=== PATIENT | female | born 1975 | race Caucasian/White ===

== ENCOUNTER → 2017-09-29 | Outpatient (CLI) | payer OTHER ==
[2016-05-19 10:41] VITALS: BMI 24.6
[~2017-09-29] MED LIST: ACE3 PO; ACET-1718 PO; ACET-1966 PO; ASPI-1471 PO; DOCO200C PO; DOXY150T6 PO; FAMO20TA28 PO; IBU800 PO; IBUP800T37 PO; Ibuprofen PO; LOR5 PO; MET2 PO; MULT-1335 PO; Methylergonovine Maleate PO; NORG1TAB76 PO; OMEP10CA38 PO; ONDA8TAB94 PO; OXYC-373 PO; PER PO; RANI25VI5 IJ; VITA-175 PO
--- NOTE | 2017-10-04 09:31 | RADIOLOGY IMAGING REPORT ---
FACILITY: [facility] - [place] PATIENT NAME: FAVIAN LINDSEY : [id number] MR: [id number] V: [id number] EXAM DATE: ORDERING PHYSICIAN: PRETTY DYER TECHNOLOGIST: Reyna Thornton PROCEDURE:BILATERAL DIGITAL SCREENING MAMMOGRAM WITH CAD AND 3D BREAST TOMOSYNTHESIS. COMPARISON:No priors. Baseline study. INDICATIONS:SCREENING FINDINGS: The breasts have scattered fibroglandular parenchymal densities. There is an asymmetry in the 4 o'clock area of the left breast warranting additional evaluation. Right breast is mammographically negative. DIAGNOSTIC CATEGORY 0--INCOMPLETE: NEED ADDITIONAL IMAGING EVALUATION. RECOMMENDATIONS: ADDITIONAL MAMMOGRAPHIC VIEWS REQUIRED: LEFT BREAST. ULTRASOUND: LEFT BREAST. IMPRESSION: Bi-RADS 0: Incomplete. Needs additional evaluation. RECOMMENDATION: 1. Left breast diagnostic mammogram. Spot compression, CC and MLO views with tomosynthesis are recommended, as well as a true MLO view. 2. Ultrasound of the left breast if indicated by additional views. Dictated by: Juan Santiago on 10/02/2017 at 9:32 Transcribed by: CLAY on 10/02/2017 at 22:43 Approved by: Laverne Staley M.D. on 10/04/2017 at 8:51 [facility]
== END ==
LOC: MAMO 04:32
PROVIDERS: ATTEND Obstetrics & Gynecology
DX: Z12.31 Encounter for screening mammogram for malignant neoplasm of breast (principal); R92.8 Other abnormal and inconclusive findings on diagnostic imaging of breast
CPT/HCPCS: 77063; 77067

== ENCOUNTER → 2017-10-17 | Outpatient (CLI) | payer OTHER ==
[2016-05-19 10:41] VITALS: BMI 24.6
--- NOTE | 2017-10-18 12:24 | RADIOLOGY IMAGING REPORT ---
F[place] [facility] [place]IENT NAME: FAVIAN LINDSEY : [id number] MR: [id number] V: [id number] EXAM DATE: [id number] ORDERING PHYSICIAN: PRETTY DYER TECHNOLOGIST: Gayle Malik PROCEDURE:LEFT DIGITAL DIAGNOSTIC MAMMOGRAM WITH CAD AND 3D BREAST TOMOSYNTHESIS. COMPARISON:Prior mammograms dated 09/29/17. INDICATIONS:FURTHER EVALUATION FINDINGS: The patient returns for spot compression views in the left CC and MLO projection and a medial lateral view of the left breast. There is a focal area of increased density in the 4 o'clock position of the left breast on the previous mammograms appear partially compressible. The medial and lateral view of the left breast, this area appeared much less prominent. Today's left breast ultrasound demonstrated a very subtle 4.9 x 2.5 x 5.4 mm ovoid hypoechoic nodule in the 4 o'clock position of the left breast. This could account for the mammographic findings although not likely. Given the improved appearance on the medial lateral view of the left breast, and no prior mammograms earlier than September 29, 2017 available for comparison, a three month followup left mammogram is recommended unless clinical findings warrant more immediate attention. DIAGNOSTIC CATEGORY 3--PROBABLY BENIGN FINDING. RECOMMENDATIONS: THREE MONTH FOLLOW-UP DIAGNOSTIC MAMMOGRAM: LEFT BREAST. IMPRESSION: Bi-RADS 3: A three month followup left mammogram is recommended as described above. Images were reviewed with R2CAD and 3D breast tomosynthesis. Dictated by: Laverne Staley M.D. on 10/17/2017 at 16:32 Transcribed by: CLAY on 10/17/2017 at 20:35 Approved by: Laverne Staley M.D. on 10/18/2017 at 12:22 [facility]
--- NOTE | 2017-10-31 09:43 | RADIOLOGY IMAGING REPORT ---
FACILITY: [facility] - [place] PATIENT NAME: FAVIAN LINDSEY : [id number] MR: [id number] V: [id number] EXAM DATE: [id number] ORDERING PHYSICIAN: PRETTY DYER TECHNOLOGIST: Livier Ash PROCEDURE:LEFT BREAST ULREASOUND COMPARISON:None. INDICATIONS:FURTHER EVALUATION FINDINGS: In the 4 o'clock position of the left breast there is a well circumscribed ovoid hypoechoic nodule measuring 4.9 x 2.5 x 5.4 mm. The nodule is wider than tall with no acoustic shadowing. This could account for today's mammographic findings although not likely. Incidentally noted is a mildly prominent duct in the 2 o'clock position of the left breast measuring 1.7 mm in diameter. A three month followup left mammogram is recommended as discussed on today's left mammogram report. DIAGNOSTIC CATEGORY 3--PROBABLY BENIGN FINDING. RECOMMENDATIONS: THREE MONTH FOLLOW-UP DIAGNOSTIC MAMMOGRAM: LEFT BREAST. IMPRESSION: Bi-RADS 3: A three month followup left mammogram is recommended as described on today's left mammogram report. Dictated by: Laverne Staley M.D. on 10/17/2017 at 16:34 Transcribed by: CLAY on 10/18/2017 at 15:51 Approved by: Laverne Staley M.D. on 10/31/2017 at 9:42 [facility]
== END ==
LOC: MAMO 01:55
PROVIDERS: ATTEND Obstetrics & Gynecology
DX: N63.23 Unspecified lump in the left breast, lower outer quadrant (principal)
CPT/HCPCS: 77065

== ENCOUNTER → 2018-01-05 | Outpatient (CLI) | payer OTHER ==
[2016-05-19 10:41] VITALS: BMI 24.6
--- NOTE | 2018-01-08 09:55 | RADIOLOGY IMAGING REPORT ---
FACILITY: [facility] - [place] PATIENT NAME: FAVIAN LINDSEY : [id number] MR: [id number] V: [id number] EXAM DATE: [id number] ORDERING PHYSICIAN: PRETTY DYER TECHNOLOGIST: Gayle Malik PROCEDURE:LEFT DIGITAL DIAGNOSTIC MAMMOGRAM WITH CAD ASSISTED INTERPRETATION & 3D TOMOSYNTHESIS COMPARISON:Prior mammograms 10/17/17, 09/29/17 INDICATIONS:FURTHER EVALUATION FINDINGS: Moderately heterogeneous fibroglandular tissue is seen throughout the breasts. The patient received a full field Left CC and MLO views in addition to a mediolateral view of the Left breast and Spot compression views of Left CC and MLO projections. The focal asymmetry in the lateral portion Left breast on the Left CC view appears partially compressible slightly less prominent on the Tomographic series of the Spot compression views. The focal area of increased density inferior portion of Left breast on the Left MLO view appears compressible. A 6 month follow-up Left mammogram is recommended for further evaluation unless clinical findings warrant more immediate attention. DIAGNOSTIC CATEGORY 3--PROBABLY BENIGN FINDING. RECOMMENDATIONS: SIX MONTH FOLLOW-UP DIAGNOSTIC MAMMOGRAM: LEFT BREAST. IMPRESSION: BIRADS 3: Probably benign finding A 6 month follow-up Left diagnostic mammogram is recommended as described. Dictated by: Laverne Staley M.D. on 01/05/2018 at 15:01 Transcribed by: ISRAEL on 01/05/2018 at 15:17 Approved by: Laverne Staley M.D. on 01/08/2018 at 9:54 [facility]
--- NOTE | 2018-01-08 09:56 | RADIOLOGY IMAGING REPORT ---
[facility] PATIENT NAME: FAVIAN LINDSEY : [id number] MR: [id number] V: [id number] EXAM DATE: [id number] ORDERING PHYSICIAN: PRETTY DYER TECHNOLOGIST: Paulo Amin PROCEDURE:US LEFT BREAST COMPARISON:Prior Left breast Ultrasound 10/17/17 and Today's mammogram. INDICATIONS:3 MO F/U FINDINGS: By the previously noted well circumscribed ovoid hypoechoic nodule in the 4 o'clock position of the Left breast is not seen on the current examination. A minimally prominent duct previously noted in the 2 o'clock position appears less prominent. No other sonographic abnormality is identified. As discussed on Today's Left diagnostic mammogram a 6 month follow-up Left mammogram is recommended unless clinical findings warrant more immediate attention. DIAGNOSTIC CATEGORY 3--PROBABLY BENIGN FINDING. RECOMMENDATIONS: SIX MONTH FOLLOW-UP DIAGNOSTIC MAMMOGRAM: LEFT BREAST. IMPRESSION: BIRADS 3: Probably benign finding A 6 month follow-up diagnostic Left mammogram is recommended as discussed on Today's Left mammogram report. Left breast Ultrasound is unremarkable. Dictated by: Laverne Staley M.D. on 01/05/2018 at 14:52 Transcribed by: ISRAEL on 01/05/2018 at 15:26 Approved by: Laverne Staley M.D. on 01/08/2018 at 9:54 [facility]
== END ==
LOC: MAMO 03:38
PROVIDERS: ATTEND Obstetrics & Gynecology
DX: R92.2 Inconclusive mammogram (principal)
CPT/HCPCS: 77061; 77065

== ENCOUNTER 2019-01-05 09:05 | Emergency (ER) | payer OTHER ==
[2016-05-19 10:41] VITALS: Wt 71.2 kg
--- NOTE | 2019-01-05 09:13 | ER Report ---
History and Physical Time Seen By MD: 09:13 HPI/ROS CHIEF COMPLAINT: Chest pain HISTORY OF PRESENT ILLNESS: Patient is a 43-year-old female who started with chest pain spontaneously woke her up around 4 this morning. She reports it is substernal without radiation. She does report shortness of breath and pain with deep inspiration. She denies nausea or vomiting. She states that last evening she was having some symptoms that she felt like she might have a urinary tract infection however those symptoms are now improved. She is a former smoker quit 15 years ago. She is no prior cardiac history. She denies history of blood clots or DVT. Patient states that she took a couple of 81 mg aspirin drawn 8:30 this morning just prior to coming into the emergency department. Because the pain persisted she came in for evaluation. REVIEW OF SYSTEMS: Constitutional: No fever, no chills. Eyes: No discharge. ENT: No sore throat. Cardiovascular: Chest pain Respiratory: Shortness of breath Gastrointestinal: No abdominal pain, no vomiting. Genitourinary: No hematuria. Musculoskeletal: No back pain. Skin: No rashes. Neurological: No headache. Allergies: Coded Allergies: Sulfa (Sulfonamide Antibiotics) (Verified Allergy, Severe, SWELLING, 01/04/11) misoprostol (Verified Allergy, Severe, AIRWAY OBSTRUCTION, 08/07/13) hydrocodone (Unverified Allergy, Intermediate, RASH, 03/11/14) Home Meds Active Scripts Naproxen (NAPROXEN) 375 Mg Tablet, 375 MG PO TID for 10 Days, #30 TAB 0 Refills Prov:RACHANA BARRAGAN MD 01/05/19 Ibuprofen (IBUPROFEN) 800 Mg Tablet, 1 TAB PO Q8H, #30 TAB Take with food every 8 hours. Prov:PRETTY DYER MD 05/18/16 Reported Medications Multivitamin With Minerals (MULTIPLE VITAMIN) 1 Each Tablet, 1 EACH PO QDAY, TAB 05/17/16 Discontinued Reported Medications Acetaminophen (TYLENOL) 325 Mg Tablet, 325 MG PO PRN for PAIN 06/01/15 Vitamin B Complex (B COMPLEX) 1 Each Tablet, 1 EACH PO 04/23/15 Discontinued Scripts Oxycodone Hcl/Acetaminophen (OXYCODONE-ACETAMINOPHEN 5-325) 1 Each Tablet, 1-2 EACH PO Q4H PRN for PAIN, #30 TAB TAKE 1-2 TABLET NEEDED FOR PAIN - NO CLOSER THAN EVERY 4 HOURS. Prov:PRETTY DYER MD 05/18/16 Past Medical/Surgical History Past medical history for severe preeclampsia, status post vaginal hysterectomy 2 016. Hx Smoking: Yes (QUIT SMOKING 12 YEARS AGO) Smoking Status: Former Smoker Exposure to Second Hand Smoke?: No Hx Alcohol Use: No Constitutional Vital Sign - Last 24 Hours 01/05/19 01/05/19 01/05/19 01/05/19 09:05 09:09 09:10 09:19 Temp 98.6 Pulse ??? 93 Resp 18 B/P (MAP) 111/73 (86) 111/73 Pulse Ox 89 O2 Delivery Room Air O2 Flow Rate 1.0 01/05/19 01/05/19 01/05/19 01/05/19 09:20 09:35 09:50 10:00 Pulse ? B/P (MAP) 102/66 (78) 01/05/19 01/05/19 01/05/19 01/05/19 10:05 10:20 10:30 10:35 Pulse 60 59 59 Resp 6 15 8 B/P (MAP) 99/71 (80) Pulse Ox 93 93 97 01/05/19 01/05/19 01/05/19 01/05/19 10:50 11:00 11:05 11:20 Pulse 68 64 76 Resp 23 17 12 B/P (MAP) 119/71 (87) Pulse Ox 96 97 84 01/05/19 01/05/19 01/05/19 01/05/19 11:30 11:35 11:50 12:00 Pulse 64 64 Resp 9 11 B/P (MAP) 103/65 (78) ???/??? (8155) Pulse Ox 92 95 01/05/19 01/05/19 01/05/19 01/05/19 12:05 12:20 12:30 12:35 Pulse 71 69 73 Resp 12 10 10 B/P (MAP) ???/??? (4835) Pulse Ox 88 94 92 Physical Exam General/Constitutional: Patient is awake, alert, nontoxic and in no acute respiratory distress. Head: Normocephalic and atraumatic. Eyes: Conjunctival clear, Neck: Supple, no adenopathy. Cardiovascular: Heart is regular rate and rhythm without audible murmurs, rubs or gallops. Pulmonary: Lungs are clear to auscultation bilaterally. There are no wheezes, rales, or rhonchi. Chest rise is symmetrical Abdomen: Soft, nontender, no guarding or peritoneal signs. Extremities: No gross deformities, No peripheral cyanosis. Able to move all 4 extremities. Neuro: Alert and oriented X3, Skin: No rashes, skin is warm dry and well perfused. Medical Decision Making Data Points Result Diagram: 01/05/19 0930 01/05/19 0930 Laboratory Hematology Test 01/05/19 09:30 01/05/19 10:40 01/05/19 11:56 Red Blood Count 5.33 M/uL (4.17-5.56) Mean Corpuscular Volume 87.7 fL (80.0-96.0) Mean Corpuscular Hemoglobin 30.4 pg (26.0-33.0) Mean Corpuscular Hemoglobin Concent 34.7 g/dL (32.0-36.0) Red Cell Distribution Width 12.7 % (11.5-14.5) Mean Platelet Volume 7.4 fL (7.2-11.1) Neutrophils (%) (Auto) 59.2 % (39.4-72.5) Lymphocytes (%) (Auto) 30.2 % (17.6-49.6) Monocytes (%) (Auto) 6.1 % (4.1-12.4) Eosinophils (%) (Auto) 3.3 % (0.4-6.7) Basophils (%) (Auto) 1.2 % (0.3-1.4) Nucleated RBC Relative Count (auto) 0.0 /100WBC Neutrophils # (Auto) 4.1 K/uL (2.0-7.4) Lymphocytes # (Auto) 2.1 K/uL (1.3-3.6) Monocytes # (Auto) 0.4 K/uL (0.3-1.0) Eosinophils # (Auto) 0.2 K/uL (0.0-0.5) Basophils # (Auto) 0.1 K/uL (0.0-0.1) Nucleated RBC Absolute Count (auto) 0.00 K/uL Prothrombin Time 13.1 seconds (12.0-14.4) Prothromb Time International Ratio 0.99 Activated Partial Thromboplast Time 27 seconds (23-35) Sodium Level 143 mmol/L (137-145) Potassium Level 4.1 mmol/L (3.5-5.0) Chloride Level 108 mmol/L (98-107) Carbon Dioxide Level 23 mmol/L (22-31) Blood Urea Nitrogen 13 mg/dl (7-18) Creatinine 0.90 mg/dl (0.52-1.04) Glomerular Filtration Rate Calc > 60.0 Random Glucose 79 mg/dl (75-110) Calcium Level 9.9 mg/dl (8.4-10.2) Total Bilirubin 0.6 mg/dl (0.2-1.3) Aspartate Amino Transf (AST/SGOT) 17 U/L (0-35) Alanine Aminotransferase (ALT/SGPT) 22 U/L (0-56) Alkaline Phosphatase 56 U/L (0-126) Total Protein 8.0 g/dl (6.3-8.2) Albumin 4.8 g/dl (3.5-5.0) Urine Color Yellow Urine Clarity Clear Urine pH 6.0 pH (4.8-9.5) Urine Specific [place] 1.011 Urine Protein Negative mg/dL (NEGATIVE) Urine Glucose (UA) Negative mg/dL (NEGATIVE) Urine Ketones Negative mg/dL (NEGATIVE) Urine Blood Negative (NEGATIVE) Urine Nitrite Negative (NEGATIVE) Urine Bilirubin Negative (NEGATIVE) Urine Urobilinogen Negative mg/dL (0.2-1.9) Urine Leukocyte Esterase Negative (NEGATIVE) Urine RBC None /HPF (0-2/HPF) Urine WBC 1 /HPF (0-5/HPF) Urine Squamous Epithelial Cells Many /LPF (</=FEW) Urine Bacteria Negative /HPF (NONE-FEW) Urine Mucus Few /HPF (NONE-FEW) Troponin I < 0.012 ng/ml Chemistry Test 01/05/19 09:30 01/05/19 10:40 01/05/19 11:56 White Blood Count 6.9 k/uL (4.5-11.0) Red Blood Count 5.33 M/uL (4.17-5.56) Hemoglobin 16.2 g/dL (12.0-16.0) Hematocrit 46.7 % (34.0-47.0) Mean Corpuscular Volume 87.7 fL (80.0-96.0) Mean Corpuscular Hemoglobin 30.4 pg (26.0-33.0) Mean Corpuscular Hemoglobin Concent 34.7 g/dL (32.0-36.0) Red Cell Distribution Width 12.7 % (11.5-14.5) Platelet Count 218 K/uL (150-450) Mean Platelet Volume 7.4 fL (7.2-11.1) Neutrophils (%) (Auto) 59.2 % (39.4-72.5) Lymphocytes (%) (Auto) 30.2 % (17.6-49.6) Monocytes (%) (Auto) 6.1 % (4.1-12.4) Eosinophils (%) (Auto) 3.3 % (0.4-6.7) Basophils (%) (Auto) 1.2 % (0.3-1.4) Nucleated RBC Relative Count (auto) 0.0 /100WBC Neutrophils # (Auto) 4.1 K/uL (2.0-7.4) Lymphocytes # (Auto) 2.1 K/uL (1.3-3.6) Monocytes # (Auto) 0.4 K/uL (0.3-1.0) Eosinophils # (Auto) 0.2 K/uL (0.0-0.5) Basophils # (Auto) 0.1 K/uL (0.0-0.1) Nucleated RBC Absolute Count (auto) 0.00 K/uL Prothrombin Time 13.1 seconds (12.0-14.4) Prothromb Time International Ratio 0.99 Activated Partial Thromboplast Time 27 seconds (23-35) Glomerular Filtration Rate Calc > 60.0 Calcium Level 9.9 mg/dl (8.4-10.2) Total Bilirubin 0.6 mg/dl (0.2-1.3) Aspartate Amino Transf (AST/SGOT) 17 U/L (0-35) Alanine Aminotransferase (ALT/SGPT) 22 U/L (0-56) Alkaline Phosphatase 56 U/L (0-126) Total Protein 8.0 g/dl (6.3-8.2) Albumin 4.8 g/dl (3.5-5.0) Urine Color Yellow Urine Clarity Clear Urine pH 6.0 pH (4.8-9.5) Urine Specific [place] 1.011 Urine Protein Negative mg/dL (NEGATIVE) Urine Glucose (UA) Negative mg/dL (NEGATIVE) Urine Ketones Negative mg/dL (NEGATIVE) Urine Blood Negative (NEGATIVE) Urine Nitrite Negative (NEGATIVE) Urine Bilirubin Negative (NEGATIVE) Urine Urobilinogen Negative mg/dL (0.2-1.9) Urine Leukocyte Esterase Negative (NEGATIVE) Urine RBC None /HPF (0-2/HPF) Urine WBC 1 /HPF (0-5/HPF) Urine Squamous Epithelial Cells Many /LPF (</=FEW) Urine Bacteria Negative /HPF (NONE-FEW) Urine Mucus Few /HPF (NONE-FEW) Troponin I < 0.012 ng/ml Coagulation Test 01/05/19 09:30 Prothrombin Time 13.1 seconds Prothromb Time International Ratio 0.99 Activated Partial Thromboplast Time 27 seconds Urinalysis Test 01/05/19 10:40 Urine Color Yellow Urine Clarity Clear Urine pH 6.0 pH (4.8-9.5) Urine Specific [place] 1.011 Urine Protein Negative mg/dL (NEGATIVE) Urine Glucose (UA) Negative mg/dL (NEGATIVE) Urine Ketones Negative mg/dL (NEGATIVE) Urine Blood Negative (NEGATIVE) Urine Nitrite Negative (NEGATIVE) Urine Bilirubin Negative (NEGATIVE) Urine Urobilinogen Negative mg/dL (0.2-1.9) Urine Leukocyte Esterase Negative (NEGATIVE) Urine RBC None /HPF (0-2/HPF) Urine WBC 1 /HPF (0-5/HPF) Urine Squamous Epithelial Cells Many /LPF (</=FEW) Urine Bacteria Negative /HPF (NONE-FEW) Urine Mucus Few /HPF (NONE-FEW) EKG/Imaging EKG Interpretation EKG shows sinus rhythm with a ventricular rate of [address] segment or T-wave abnormalities are noted. Monitor Interpretation: Normal Sinus Rhythm (frequent PVCs) Imaging FACILITY: [facility] - [place] PATIENT NAME: Griffin Hahn : 1975 MR: [id number] V: [id number] EXAM DATE: [id number] ORDERING PHYSICIAN: RACHANA BARRAGAN TECHNOLOGIST: Location: [facility] [place] Patient: Griffin Hahn : 1975 Visit/Account:[id number] Date of Sevice: 01/05/2019 CHEST PA LAT Indication: Chest Pain Comparison: None. Findings: Lungs: Clear. Mediastinum/pulmonary vasculature: Heart size and pulmonary vasculature are normal. Bones/soft tissues: Normal. IMPRESSION: Clear lungs. Report Dictated By: Juan Altagracia at 01/05/2019 10:33 AM Report E-Signed By: Juan Frias at 01/05/2019 10:33 AM WSN:[id number] ED Course/Re-evaluation ED Course Plan at this time will be cardiac workup with delta Troponin at 2 hours. She already took aspirin this morning. 01/05/2019 12:37:09 pm patient still having some chest pressure repeat troponin is negative monitor showing occasional PVCs. Tried to arrange placement of Holter monitor however we do not have anything to give out. Instructed patient to bring prescription to hospital Monday to try to arrange Holter monitor results will go to [facility] [place]. Decision to Disposition Date: Jan 05, 2019 Decision to Disposition Time: 12:35 Depart Departure Latest Vital Signs Vital Signs Date Time Temp Pulse Resp B/P (MAP) Pulse Ox O2 Delivery O2 Flow Rate FiO2 01/05/19 12:35 73 10 92 01/05/19 12:30 ???/??? (1665) 01/05/19 09:19 1.0 01/05/19 09:10 98.6 Room Air Impression: Primary Impression: Chest wall pain Additional Impression: PVC's (premature ventricular contractions) Condition: Improved Disposition: HOME OR SELF-CARE New Scripts Naproxen (NAPROXEN) 375 Mg Tablet 375 MG PO TID for 10 Days, #30 TAB 0 Refills Prov: RACHANA BARRAGAN MD 01/05/19 Patient Instructions: Chest Wall Pain (GEN), Premature Ventricular Contractions (ED) Additional Instructions: Make an appointment with [facility] [place] to establish care and follow-up for your chest pain. Return on Monday, January 07 to arrange for Holter monitor. Turned to the emergency department if he develops new or worsening symptoms including fever, cough worsening chest pain nausea with vomiting that is intractable. Problem Qualifiers RACHANA BARRAGAN MD Jan 05, 2019 09:13
[2019-01-05] MEDS ORDERED: KETOROLAC 15 MG/ML VIAL IVP ONE (09:25)
--- NOTE | 2019-01-05 09:28 | EKG ---
FACILITY: [facility] PATIENT NAME: FAVIAN LINDSEY : [id number] MR: [id number] V: [id number] EXAM DATE: ORDERING PHYSICIAN: RACHANA BARRAGAN TECHNOLOGIST: Test Reason : Chest pain Blood Pressure : / mmHG Vent. Rate : 060 BPM Atrial Rate : 060 BPM P-R Int : 144 ms QRS Dur : 080 ms QT Int : 406 ms P-R-T Axes : 070 031 055 degrees QTc Int : 406 ms Normal sinus rhythm Normal ECG No previous ECGs available Confirmed by PRETTY BRITO ([id number]) on 01/05/2019 9:52:35 AM Referred By: Confirmed By:PRETTY BRITO
[2019-01-05 09:49] LABS: INR 0.99
[2019-01-05 09:55] LABS: PLATELET COUNT, AUTOMATED 218 K/uL (150-450)
--- NOTE | 2019-01-05 10:37 | RADIOLOGY IMAGING REPORT ---
FACILITY: [facility] [place] PATIENT NAME: Griffin Hahn : 1975 MR: [id number] V: [id number] EXAM DATE: ORDERING PHYSICIAN: RACHANA BARRAGAN TECHNOLOGIST: Location: [facility] Patient: Griffin Hahn : 1975 Visit/Account:[id number] Date of Sevice: 01/05/2019 CHEST PA LAT Indication: Chest Pain Comparison: None. Findings: Lungs: Clear. Mediastinum/pulmonary vasculature: Heart size and pulmonary vasculature are normal. Bones/soft tissues: Normal. IMPRESSION: Clear lungs. Report Dictated By: Juan Frias at 01/05/2019 10:33 AM Report E-Signed By: Juan Frias at 01/05/2019 10:33 AM WSN:[id number]
[2019-01-05] MEDS ORDERED: LORazepam 2 MG/ML VIAL IVP ONE (11:00)
[2019-01-05] MEDS ORDERED: NAPR375T44 PO (12:42)
== END 2019-01-05 12:52 | disposition home or self-care (01) ==
LOC: ER 09:09
DX: R07.9 Chest pain, unspecified (principal); I49.3 Ventricular premature depolarization
CPT/HCPCS: 71046; 81001; 84484; 85025; 85610; 85730; 93005; 96374; 96375; 99284; J1885; J2060; 82040; 82247; 82310; 82374; 82435; 82565; 82947; 84075; 84132; 84155; 84295; 84450; 84460; 84520

== ENCOUNTER → 2019-01-07 | Outpatient (CLI) | payer OTHER ==
[2016-05-19 10:41] VITALS: BMI 24.6
[~2019-01-07] MED LIST changes: +NAPR375T44 PO
--- NOTE | 2019-01-08 08:31 | RADIOLOGY IMAGING REPORT ---
[place] [facility] [place] FAVIAN LINDSEY : [id number] MR: [id number] V: [id number] EXAM DATE: [id number] ORDERING PHYSICIAN: BRADLEY NEWBERRY TECHNOLOGIST: Reyna Thornton PROCEDURE:BILATERAL DIAGNOSTIC DIGITAL MAMMOGRAM WITH CAD ASSISTED INTERPRETATION & 3D TOMOSYNTHESIS COMPARISON:Prior mammograms 01/05/18, 10/17/17, 09/29/17. INDICATIONS:6 month follow up of asymmetry in the Left breast. FINDINGS: The breasts are heterogeneously dense which can obscure small masses. The small asymmetry previously described in the inferior lateral Left breast appears relatively stable. The parenchymal pattern throughout both breasts likewise has remained stable. DIAGNOSTIC CATEGORY 3--PROBABLY BENIGN FINDING. RECOMMENDATIONS: SIX MONTH FOLLOW-UP DIAGNOSTIC MAMMOGRAM: LEFT BREAST. IMPRESSION: BIRADS 3: Probably benign finding. A 6 month follow-up Left mammogram is recommended to document stability of the parenchymal pattern for a 2 year period. Dictated by: Laverne Staley M.D. on 01/07/2019 at 14:58 Transcribed by: ISRAEL on 01/08/2019 at 8:27 Approved by: Laverne Staley M.D. on 01/08/2019 at 8:30 [facility]
== END ==
LOC: MAMO 02:11
PROVIDERS: ATTEND Nurse Practitioner Family
DX: R92.8 Other abnormal and inconclusive findings on diagnostic imaging of breast (principal)
CPT/HCPCS: 77062; 77066

== ENCOUNTER → 2019-01-07 | Outpatient (CLI) | payer OTHER ==
[2016-05-19 10:41] VITALS: BMI 24.6
--- NOTE | 2019-01-08 16:59 | RT HOLTER TEST ---
FACILITY: [facility] [place] PATIENT NAME: FAVIAN LINDSEY : [id number] MR: [id number] V: [id number] EXAM DATE: ORDERING PHYSICIAN: RACHANA BARRAGAN TECHNOLOGIST: Nevin-denisse date: 2019-01-07 15:45:00 Duration: 24:00:00 Test Indications: PALPITATIONS Medications: DIARY NOT RETURNED 403625 QRS complexes 3652 Ventricular ectopics which represent 3 % of total QRS comp. 28 Supraventricular ectopics which represent <1 % of total QRS comp. * Paced QRS complexes which represent % of total QRS comp. VENTRICULAR ECTOPY 3650 Isolated 1203 Bigeminal Cycles 1 Couplets 0 Runs 0 Beats in Runs * Beats LONGEST at * BPM at :: -- * Beats FASTEST at * BPM at :: -- SUPRAVENTRICULAR ECTOPY 28 Isolated 0 Couplets 0 Runs 0 Beats in Runs * Beats LONGEST at * BPM at :: -- * Beats FASTEST at * BPM at :: -- HEART RATES 43 MIN at 05:24:57 2019-01-08 71 AVG 133 MAX at 12:50:18 2019-01-08 LONGEST RR 1.472 secs at 06:00:03 2019-01-08 S-T LEVELS Channel 1 -12.800 mm MIN at 15:45:00 2019-01-07 -12.800 mm MAX at 15:45:00 2019-01-07 Channel 2 -12.800 mm MIN at 15:45:00 2019-01-07 -12.800 mm MAX at 15:45:00 2019-01-07 Channel 3 -12.800 mm MIN at 15:45:00 2019-01-07 -12.800 mm MAX at 15:45:00 2019-01-07 Sinus rhythm Premature ventricular complexes in a pattern of bigeminy Premature supraventricular complexes Confirmed by PRETTY BRITO ([id number]) on 01/08/2019 4:59:18 PM Referred By: [facility] Overread By: PRETTY BRITO
== END ==
LOC: RESP 15:17
PROVIDERS: ATTEND Emergency Medicine
DX: R00.2 Palpitations (principal)
CPT/HCPCS: 93225; 93226

== ENCOUNTER → 2019-01-24 | Outpatient (CLI) | payer OTHER ==
[2016-05-19 10:41] VITALS: BMI 24.6
--- NOTE | 2019-01-24 15:29 | RT STRESS TEST REPORT ---
FACILITY: [facility] PATIENT NAME: FAVIAN LINDSEY : [id number] MR: [id number] V: [id number] EXAM DATE: ORDERING PHYSICIAN: TAZ RADER TECHNOLOGIST: [employer] Time: 2019-01-24 14:00:11 Total Exercise Time: 00:10:13 Test Indications: Chest Pain / Discomfort Medications: Protocol: BRUCE2 Max HR: 166 BPM 92% of Pred: 179 BPM Max BP: 151/069 mmHG Max Work Load: 12.1 METS Confirmed by PRETTY BRITO ([id number]) on 01/24/2019 3:29:08 PM Referred By: Overread By: PRETTY BRITO
== END ==
LOC: RESP 01:15
PROVIDERS: ATTEND Internal Medicine Cardiovascular Disease
DX: R07.9 Chest pain, unspecified (principal); R06.02 Shortness of breath
CPT/HCPCS: 93017

== ENCOUNTER → 2019-01-25 | Outpatient (CLI) | payer OTHER ==
[2016-05-19 10:41] VITALS: BMI 24.6
== END ==
LOC: US 07:17
PROVIDERS: ATTEND Internal Medicine Cardiovascular Disease
DX: R07.9 Chest pain, unspecified (principal); R06.02 Shortness of breath
CPT/HCPCS: 93306